=== PATIENT | female | born 1975 | race Caucasian/White ===

== ENCOUNTER 2018-08-27 17:59 | Emergency (ER) | payer SELFPAY ==
[2018-08-27 18:17] VITALS: BP 137/74; PULSE 70; TEMP 98.2; BMI 27.1
[2018-08-27] MEDS ORDERED: morphine CARPU-JECT 2 MG/1 ML DISP.SYRIN IVPUSH ONE (19:06)
[2018-08-27] MEDS ORDERED: MORPHINE SULFATE 2 MG/ML VIAL ONE (19:07)
--- NOTE | 2018-08-27 19:07 | PDOC ---
History of Present Illness - General Chief Complaint: Pain Stated Complaint: STOMACH PAIN Time Seen by Provider: 08/27/18 19:07 - History of Present Illness Initial Comments: 08/27/18 19:40 Ms. Morales is a 43 yo female w/ pmh of 3 months ago (term, scheduled, no difficulties, not currently ) and gestational diabetes who presents for evaluation of 2 hour history of sudden onset epigastric and RUQ pain. Patient reports she was in her usual state of health until pain started as she was preparing food for her . She endorses associated nausea however denies any vomiting. Can think of no precipitating factors and says it feels like previous episodes of gastritis only worse with additional RUQ pain. The patient denies chest pain, shortness of breath, headache and dizziness. Denies fever, chills, vomit, diarrhea and constipation. Denies dysuria, frequency, urgency and hematuria. Past History - Past Medical History Allergies/Adverse Reactions: Allergies Allergy/AdvReac Type Severity Reaction Status Date / Time No Known Allergies Allergy Verified 08/27/18 18:13 Home Medications: Ambulatory Orders NK [No Known Home Medication] 04/14/16 Asthma: No Cancer: No Cardiac Disorders: No COPD: No Diabetes: No HTN: No Seizures: No Thyroid Disease: No - Reproductive History (#): 5 Para: 2 Ectopic : Yes - Suicide/Smoking/Psychosocial Hx Smoking History: Never smoked Have you smoked in the past 12 months: No Hx Alcohol Use: No Drug/Substance Use Hx: No Substance Use Type: None Hx Substance Use Treatment: No Review of Systems - Review of Systems Comments:: 08/27/18 19:45 GENERAL/CONSTITUTIONAL: No fever or chills. No weakness. HEAD, EYES, EARS, NOSE AND THROAT: No change in vision. No ear pain or discharge. No sore throat. CARDIOVASCULAR: No chest pain or shortness of breath RESPIRATORY: No cough, wheezing, or hemoptysis. GASTROINTESTINAL: +Epigastric and RUQ pain, constant, for 2+ hours. Nausea w/ out vomiting, diarrhea or constipation. GENITOURINARY: No dysuria, frequency, or change in urination. MUSCULOSKELETAL: No joint or muscle swelling or pain. No neck or back pain. SKIN: No rash NEUROLOGIC: No headache, vertigo, loss of consciousness, or change in strength/ sensation. ENDOCRINE: No increased thirst. No abnormal weight change HEMATOLOGIC/LYMPHATIC: No anemia, easy bleeding, or history of blood clots. ALLERGIC/IMMUNOLOGIC: No hives or skin allergy. *Physical Exam - Vital Signs Last Vital Signs Temp Pulse Resp BP Pulse Ox 98.2 F 70 16 137/74 99 08/27/18 18:13 08/27/18 18:13 08/27/18 18:13 08/27/18 18:13 08/27/18 18:13 - Physical Exam Comments: 08/27/18 19:45 GENERAL: Awake, alert, and fully oriented, in no acute distress HEAD: No signs of trauma, normocephalic, atraumatic EYES: PERRLA, EOMI, sclera anicteric, conjunctiva clear ENT: Auricles normal inspection, hearing grossly normal, nares patent, oropharynx clear without exudates. Moist mucosa NECK: Normal ROM, supple, no lymphadenopathy, JVD, or masses LUNGS: No distress, speaks full sentences, clear to auscultation bilaterally HEART: Regular rate and rhythm, normal S1 and S2, no murmurs, rubs or gallops, peripheral pulses normal and equal bilaterally. ABDOMEN: +Epigastric and RUQ TTP. Also well healed scar noted to pelvis. Otherwise soft, nontender, normoactive bowel sounds. No guarding, no rebound. No masses EXTREMITIES: Normal inspection, Normal range of motion, no edema. No clubbing or cyanosis. NEUROLOGICAL: Cranial nerves II through XII grossly intact. Normal speech, normal gait, no focal sensorimotor deficits SKIN: Warm, Dry, normal turgor, no rashes or lesions noted. Moderate Sedation - Procedure Monitoring Vital Signs: Procedure Monitoring Vital Signs Temperature 98.2 F 08/27/18 18:13 Pulse Rate 70 08/27/18 18:13 Respiratory Rate 16 08/27/18 18:13 Blood Pressure 137/74 08/27/18 18:13 O2 Sat by Pulse Oximetry (%) 99 08/27/18 18:13 ED Treatment Course - LABORATORY CBC & Chemistry Diagram: 08/27/18 19:00 08/27/18 19:00 Medical Decision Making - Medical Decision Making 08/27/18 19:56 Ms. Morales is a 43 yo female w/ pmh as described who presents for evaluation of several hour history of epigastric / RUQ pain. Patient noted to be in significant pain upon arrival. Given fluids/pepcid/zofran/morphine for symptomatic relief. Labs sent as below for r/o cholecystits vs. gastritis vs. pancreatitis. Patient currently pending US evaluation. 08/27/18 21:05 Patient US significant for cholelithiasis w/out cholecystitis. Patient labs grossly wnl as below. No concern for acute process at this time. Will discharge patient with f/u information for surgery for elective cholecystectomy evaluation as needed. Discussed return precautions with patient and provided copy of US results. Laboratory Results - last 24 hr 08/27/18 08/27/18 08/27/18 19:00 19:00 19:00 WBC 8.4 RBC 4.63 Hgb 12.7 Hct 37.8 MCV 81.5 MCH 27.4 MCHC 33.6 RDW 13.2 Plt Count 237 MPV 7.6 Absolute Neuts (auto) 6.0 Neutrophils % 71.6 Lymphocytes % 18.6 D Monocytes % 7.4 Eosinophils % 2.0 Basophils % 0.4 Nucleated RBC % 0 PT with INR 11.00 INR 0.93 PTT (Actin FS) 36.0 Sodium 142 Potassium 4.1 Chloride 106 Carbon Dioxide 30 Anion Gap 6 L BUN 17 Creatinine 0.7 Creat Clearance w eGFR > 60 Random Glucose 108 H Calcium 9.5 Total Bilirubin 0.3 AST 34 ALT 36 Alkaline Phosphatase 86 Creatine Kinase 98 Troponin I < 0.02 Total Protein 7.7 Albumin 4.0 Lipase 136 Urine Color Urine Appearance Urine pH Ur Specific [place] Urine Protein Urine Glucose (UA) Urine Ketones Urine Blood Urine Nitrite Urine Bilirubin Urine Urobilinogen Ur Leukocyte Esterase Urine HCG, Qual 08/27/18 19:36 WBC RBC Hgb Hct MCV MCH MCHC RDW Plt Count MPV Absolute Neuts (auto) Neutrophils % Lymphocytes % Monocytes % Eosinophils % Basophils % Nucleated RBC % PT with INR INR PTT (Actin FS) Sodium Potassium Chloride Carbon Dioxide Anion Gap BUN Creatinine Creat Clearance w eGFR Random Glucose Calcium Total Bilirubin AST ALT Alkaline Phosphatase Creatine Kinase Troponin I Total Protein Albumin Lipase Urine Color Yellow Urine Appearance Clear Urine pH 5.0 Ur Specific [place] 1.025 Urine Protein Negative Urine Glucose (UA) Negative Urine Ketones Negative Urine Blood Negative Urine Nitrite Negative Urine Bilirubin Negative Urine Urobilinogen Negative Ur Leukocyte Esterase Negative Urine HCG, Qual Negative *DC/Admit/Observation/Transfer Diagnosis at time of Disposition: Cholelithiasis Qualifiers: Cholelithiasis location: gallbladder Cholecystitis presence: without cholecystitis Biliary obstruction: without biliary obstruction Qualified Code(s) : K80.20 - Calculus of gallbladder without cholecystitis without obstruction - Discharge Dispostion Disposition: HOME - Referrals Referrals: John Vega MD [Staff Physician] - Kosta Burdick MD [Staff Physician] - - Patient Instructions Printed Discharge Instructions: DI for Gallstones Additional Instructions: You were evaluated today in the ER for your abdominal pain. No emergent findings were found at this time. Ultrasound revealed you have gall stones. We have provided you information regarding surgeons that you may consult for further follow-up. Please return if any fevers, increase or return of pain, or other concerning symptoms. - Post Discharge Activity
[2018-08-27] MEDS ORDERED: FAMOTIDINE 20 MG/50 ML IVPB 20 MG/50 ML MG IVPB ONE ×2 (19:22→19:26)
[2018-08-27] MEDS ORDERED: ONDANSETRON 4 MG/2 ML VIAL ONE (19:22)
[2018-08-27 19:23] LABS: BASO % 0.4 % (0-2.0); HEMATOCRIT 37.8 % (32.4-45.2); HEMOGLOBIN 12.7 GM/dL (10.7-15.3); LYMPH % 18.6 % (8-40); MCH 27.4 pg (25.7-33.7); MCHC 33.6 g/dl (32.0-36.0); MEAN CELL VOLUME 81.5 fl (80-96); MEAN PLT VOLUME 7.6 fl (7.5-11.1); MONO % 7.4 % (3.8-10.2); NEUT % 71.6 % (42.8-82.8); PLATELET COUNT 237 K/MM3 (134-434); RBC 4.63 M/mm3 (3.60-5.2); RDW 13.2 % (11.6-15.6); WHITE BLOOD COUNT 8.4 K/mm3 (4.0-10.0)
[2018-08-27] MEDS ORDERED: ONDANSETRON 4 MG/2 ML VIAL IVPUSH ONE (19:26)
[2018-08-27] MEDS ORDERED: SODIUM CHLORIDE 1,000 ML IV STA (19:27)
[2018-08-27 19:35] LABS: INR 0.93 (0.83-1.09)
[2018-08-27 19:45] LABS: ALK PHOS 86 U/L (45-117); ANION GAP 6 MMOL/L (8-16); BILIRUBIN,TOTAL 0.3 mg/dL (0.2-1); BLOOD UREA NITROGEN 17 mg/dL (7-18); CALCIUM 9.5 mg/dL (8.5-10.1); CHLORIDE 106 mmol/L (98-107); CO2 30 mmol/L (21-32); CREATININE 0.7 mg/dL (0.55-1.3); GLUCOSE,RANDOM 108 mg/dL (74-106); LIPASE 136 U/L (73-393); POTASSIUM 4.1 mmol/L (3.5-5.1); SGOT/AST 34 U/L (15-37); SGPT/ALT 36 U/L (13-61); SODIUM 142 mmol/L (136-145); TOT PROT 7.7 g/dl (6.4-8.2)
[2018-08-27 19:50] LABS: URINE APPEARANCE CLEAR; URINE BILIRUBIN NEGATIVE (<2.0 mg/dL); URINE COLOR YELLOW; URINE GLUCOSE (UA) NEGATIVE (NEGATIVE); URINE KETONE NEGATIVE (NEGATIVE); URINE LEUK ESTERASE NEGATIVE (NEGATIVE); URINE NITRITE NEGATIVE (NEGATIVE); URINE PROTEIN NEGATIVE (NEGATIVE); URINE UROBILINOGEN NEGATIVE mg/dL (0.2-1.0)
--- NOTE | 2018-08-27 19:57 | PDOC ---
Attending Attestation - HPI HPI: 08/27/18 19:58 The patient is a 43 year old female with past medical history significant for gestational DM (resolved) presents to the emergency department with epigastric pain. The patient presents with a sudden onset of epigastric pain about 2 hours [employer]. The patient reports associated symptoms of nausea, denies vomiting. The patient reports she was able to eat chicken with spaghetti and had 3 bowel movements, denies diarrhea, hematochezia, constipation. The patient is 3 months . The patient reports she isnt the infant. Denies fever, chills, cough, chest pain or SOB. Allergies: NKDA PCP: None reported - Physicial Exam PE: 08/27/18 19:58 GENERAL: Awake, alert, and fully oriented, in no acute distress HEAD: No signs of trauma NECK: Normal ROM, supple, no lymphadenopathy, JVD, or masses LUNGS: Breath sounds equal, clear to auscultation bilaterally. No wheezes, and no crackles HEART: Regular rate and rhythm, normal S1 and S2, no murmurs, rubs or gallops ABDOMEN: +minimal tenderness to the upper quadrant, gassy but normoactive bowel sounds, soft, No guarding, no rebound. No masses EXTREMITIES: Normal range of motion, no edema. No clubbing or cyanosis. No cords, erythema, or tenderness NEUROLOGICAL: Cranial nerves II through XII grossly intact. Normal speech, normal gait SKIN: Warm, Dry, normal turgor, no rashes or lesions noted. - Medical Decision Making 08/27/18 19:58 Documentation prepared by Jacqueline Romero, acting as quality engineer medical device for Lavonne Kim MD. <Jacqueline Romero - Last Filed: 08/27/18 20:05> - Resident Resident Name: Brandon Fritz - ED Attending Attestation I have performed the following: I have examined & evaluated the patient, The case was reviewed & discussed with the resident, I agree w/resident's findings & plan - HPI HPI: 08/27/18 19:55 Pt comes with RUQ pain; she states that she ate spaghetti and chicken today and she has abd pain. She had 3 BMs and she has no fever and no chills and no vomiting. - Medical Decision Making 08/27/18 19:56 Pt will be sent home with low fat diet. More fruits and veggies. Follow with gen surg as needed. Motrin tylenol for back pains. Maalox for gastitis. 08/27/18 21:05 Patient Name: DURGA FREGOSO THIS IS A PRELIMINARY REPORT FROM [facility] DATE OF SERVICE: 2018-08-27 20:08:47 IMAGES: 61 EXAM: Limited right upper quadrant abdominal sonogram. Clinical indication: Right upper quadrant abdominal pain. There are no prior studies available for comparison. Finding: The liver is mildly prominent measuring 18.0 cm in length. Otherwise, the liver has a normal shape and echotexture without focal abnormality. The IVC is patent. The liver has a normal size, shape and echotexture without focal abnormality. There is no intrahepatic duct dilatation. There is normal antegrade portal venous flow. There is no ascites. The right kidney measures 11.5 x 4.8 x 4.4 cm in diameter and has not unremarkable sonographic appearance without sonographically detected focal abnormality. There is no right -sided hydronephrosis or renal calculi. There are multiple mobile gallstones. The gallbladder is otherwise unremarkable. The common bile duct measures 0.6 cm in diameter. The pancreas has a normal size, shape and echotexture, without sonographically detected focal abnormality. Impression: 1. Cholelithiasis. 2. Mildly prominent liver which could be due to a José Miguel's lobe or mild hepatomegaly. <Lavonne Kim - Last Filed: 08/27/18 21:05>
[2018-08-27 19:58] LABS: HCG,QUALITATIVE URINE Negative
[2018-08-27] MEDS ORDERED: ACETAMINOPHEN 1000 MG/100 ML VIAL (NON FORMULARY) IVPB ONE (21:03)
[2018-08-27] MEDS ORDERED: ACETAMINOPHEN INJECTION 100 ML IVPB ONE (21:07)
--- NOTE | 2018-08-28 11:10 | EKG ---
Test Reason : Blood Pressure : / mmHG Vent. Rate : 076 BPM Atrial Rate : 076 BPM P-R Int : 108 ms QRS Dur : 094 ms QT Int : 406 ms P-R-T Axes : 062 032 010 degrees QTc Int : 456 ms SINUS RHYTHM WITH SHORT MI NO PREVIOUS ECGS AVAILABLE Confirmed by MARINA ADAM MD ([id number]) on 08/28/2018 11:10:02 AM Referred By: Confirmed By:MARINA ADAM MD
== END 2018-08-27 21:56 | disposition home or self-care (01) ==
LOC: JER 17:59
PROC: 3E0337Z Introduction of Electrolytic and Water Balance Substance into Peripheral Vein, Percutaneous Approach (ICD-10-PCS; principal; 2018-08-27)
PROC: 3E033GC Introduction of Other Therapeutic Substance into Peripheral Vein, Percutaneous Approach (ICD-10-PCS; 2018-08-27)
PROC: 3E033GC Introduction of Other Therapeutic Substance into Peripheral Vein, Percutaneous Approach (ICD-10-PCS; 2018-08-27)
PROC: 3E033NZ Introduction of Analgesics, Hypnotics, Sedatives into Peripheral Vein, Percutaneous Approach (ICD-10-PCS; 2018-08-27)
PROC: 3E033NZ Introduction of Analgesics, Hypnotics, Sedatives into Peripheral Vein, Percutaneous Approach (ICD-10-PCS; 2018-08-27)
DX: K80.20 Calculus of gallbladder without cholecystitis without obstruction (principal); Z86.32 Personal history of gestational diabetes
CPT/HCPCS: 36415; 76705-TC; 80053; 81003; 82550; 83690; 84484; 84703; 85025; 85610; 85730; 86850; 86900; 86901; 87086; 93005; 93010; 96361; 96365; 96375; 99283-25; J0131; J7030